=== PATIENT | male | born 1955 | race Caucasian/White ===

== ENCOUNTER 2020-03-10 03:51 | Emergency (ER) | payer BC ==
[~2020-03-10] VITALS: Ht 182.9 cm; Wt 75.0 kg
[2020-03-10 03:55] VITALS: BP 134/89
[2020-03-10] MEDS ORDERED: TETanus/Pertussis (Acell)/Diphther VAC/PF (Tdap-Adult) 0.5ml syringe IMVAC ONE (04:05)
--- NOTE | 2020-03-10 05:42 | NUR ---
[facility] notified pt is ready to be discharged. [employer] contacted for transportation. [employer] unable to contact family for transportation payment. automobile rental clerk made attempt to contact family; no answer.
[2020-03-17] MEDS ORDERED: LURA60TA2 PO (15:26)
[2020-03-17] MEDS ORDERED: ATOR80TA PO (15:26)
[2020-03-17] MEDS ORDERED: ASPI-1265 PO (15:26)
[2020-03-17] MEDS ORDERED: THIA100T70 PO (15:26)
[2020-03-17] MEDS ORDERED: LORA-269 PO (15:26)
[2020-03-17] MEDS ORDERED: FOLI0.4T2 PO (15:26)
[2020-03-17] MEDS ORDERED: DIVA-74 PO (15:26)
[2020-03-17] MEDS ORDERED: METO-411 PO (15:26)
[2020-03-17] MEDS ORDERED: TRAM50TA2 PO (15:26)
[2020-03-17] MEDS ORDERED: BUDE10.2 INH (15:26)
[2020-03-17] MEDS ORDERED: ALPR-624 PO (15:26)
[2020-03-17] MEDS ORDERED: DESV50TA10 PO (15:26)
[2020-03-17] MEDS ORDERED: CLOP75TA35 PO (15:26)
[2020-03-17] MEDS ORDERED: QUET25TA PO (15:26)
[2020-03-17] MEDS ORDERED: LOSA25TA96 PO (15:26)
[2020-03-17] MEDS ORDERED: GABA600T13 PO (15:26)
[2020-03-17] MEDS ORDERED: QUET100T33 PO (15:26)
[2020-03-17] MEDS ORDERED: ACET-1008 PO (15:26)
[2020-03-17] MEDS ORDERED: HYDR12.55 PO (15:26)
== END 2020-03-10 06:22 | disposition home or self-care (01) ==
LOC: ER 03:52
DX: S09.90XA Unspecified injury of head, initial encounter (principal); S01.111A Laceration without foreign body of right eyelid and periocular area, initial encounter; Z88.5 Allergy status to narcotic agent; W22.8XXA Striking against or struck by other objects, initial encounter; Y93.89 Activity, other specified; Y92.89 Other specified places as the place of occurrence of the external cause; Y99.8 Other external cause status
CPT/HCPCS: 70450; 90471; 90715; 99284

== ENCOUNTER → 2020-03-17 | Emergency (ER) | payer BC ==
[~2020-03-17] VITALS: Ht 188 cm; Wt 77.0 kg
[~2020-03-17] MED LIST: ACET-1008 PO; ALPR-624 PO; ALPRAZolam 0.5mg tablet PO PRN; ASPI-1265 PO; ATOR80TA PO; BUDE10.2 INH; CLOP75TA35 PO; DESV50TA10 PO; DIVA-74 PO; FOLI0.4T2 PO; GABA600T13 PO; HYDR12.55 PO; HYDROchlorothiazide 12.5mg capsule PO SCH; LORA-269 PO; LORazepam 2 mg/ml vial IM ONE; LOSA25TA96 PO; LURA60TA2 PO; METO-411 PO; OLANZapine 5mg rapidly disint. tablet PO ONE; QUET100T33 PO; QUET25TA PO; TETanus/Pertussis (Acell)/Diphther VAC/PF (Tdap-Adult) 0.5ml syringe IMVAC ONE; THIA100T70 PO; TRAM50TA2 PO; diphenhydrAMINE 50 mg/ml inj IM ONE; losartan 25mg tablet PO SCH; traMADol 50MG tablet PO PRN
[2020-03-17 14:53] LABS: BASOPHILS # (AUTO) 0.1 X10'3 (0-0.2); BASOPHILS % (AUTO) 1.1 % (0-1); EOSINOPHILS # (AUTO) 0.4 X10'3 (0-0.9); EOSINOPHILS % (AUTO) 7.3 % (0-6); HEMATOCRIT 27.4 % (42.0-52.0); HEMOGLOBIN 9.1 g/dl (14.0-17.9); LYMPHOCYTES # (AUTO) 1.6 X10'3 (1.1-4.8); LYMPHOCYTES % (AUTO) 29.3 % (21-51); MEAN CORPUSCULAR HEMOGLOBIN 29.9 PG (27.0-31.0); MEAN CORPUSCULAR VOLUME 90.6 FL (78-98); MEAN PLATELET VOLUME 6.8 FL (7.4-10.4); MONOCYTES # (AUTO) 0.9 X10'3 (0-0.9); MONOCYTES % (AUTO) 16.7 % (2-12); NEUTROPHILS # (AUTO) 2.5 X10'3 (1.8-7.7); NEUTROPHILS % (AUTO) 45.6 % (42-75); PLATELET COUNT 225 X10'3 (140-440); RED BLOOD COUNT 3.03 X10'6 (4.70-6.10); WHITE BLOOD COUNT 5.5 X10'3 (4.5-11.0)
[2020-03-17 15:04] LABS: ALANINE AMINOTRANSFERASE 14 U/L (12-78); ALBUMIN 2.8 G/DL (3.4-5.0); ALBUMIN/GLOBULIN RATIO 0.8 (1.1-1.5); ALKALINE PHOSPHATASE 97 IU/L (46-116); ANION GAP 6 (8-16); ASPARTATE AMINO TRANSFERASE 17 U/L (10-37); BILIRUBIN,TOTAL 0.4 MG/DL (0.1-1.0); BLOOD UREA NITROGEN 11 MG/DL (7-18); BUN/CREATININE RATIO 10.8 (5.4-32.0); CALCIUM 8.4 MG/DL (8.5-10.1); CHLORIDE 106 MMOL/L (99-107); CREATININE 1.02 MG/DL (0.60-1.10); ETHANOL < 0.010 GM/DL (0.0-0.010); GLUCOSE 92 MG/DL (70-104); POTASSIUM 3.5 MMOL/L (3.5-5.1); SODIUM 142 MMOL/L (135-145); TOTAL CARBON DIOXIDE 29.9 MMOL/L (24-32); TOTAL PROTEIN 6.2 G/DL (6.4-8.2); eGFR 74 ML/MIN
[2020-03-17 16:44] LABS: URINE AMPHETAMINE SCREEN NEGATIVE (Neg); URINE BARBITUATE SCREEN NEGATIVE (Neg); URINE BENZODIAZEPINES SCREEN NEGATIVE (Neg); URINE CANNABINOID SCREEN NEGATIVE (Neg); URINE COCAINE SCREEN NEGATIVE (Neg); URINE METHADONE SCREEN NEGATIVE (Neg); URINE OPIATE SCREEN NEGATIVE (Neg); URINE PHENCYCLIDINE SCREEN NEGATIVE (Neg)
--- NOTE | 2020-03-17 17:00 | NUR ---
pt outside of his room swearing at the staff, provider ordered meds to be given.
[2020-03-17 19:11] LABS: CLARITY,URINE CLEAR (Clear); COLOR,URINE YELLOW (Yellow); GLUCOSE, URINE NEGATIVE (Neg); KETONES,URINE NEGATIVE (Neg); LEUKOCYTE ESTERASE ,URINE NEGATIVE (Neg); NITRITES, URINE NEGATIVE (Neg); OCCULT BLOOD,URINE NEGATIVE (Neg); PROTEIN,URINE NEGATIVE (Neg)
[2020-03-17 19:20] LABS: UA COLLECTION TYPE CLN CATCH MIDSTREAM
[2020-03-17] MEDS: QUEtiapine 25mg tablet PO SCH (20:00)
[2020-03-17] MEDS: LORazepam 1 MG tablet PO SCH (20:13)
[2020-03-17] MEDS: quetiapine 100mg tablet PO SCH (20:13)
[2020-03-17] MEDS: atorvastatin 20mg tablet PO SCH (20:13)
[2020-03-17] MEDS: divalproex sodium 250mg tablet PO SCH (20:13)
[2020-03-17] MEDS: lurasidone 60mg tablet PO SCH (20:13)
[2020-03-17] MEDS: venlafaxine 25mg tablet PO SCH (20:13)
[2020-03-17] MEDS: gabapentin 300mg capsule PO SCH (20:14)
[2020-03-17] MEDS: budesonide 0.5mg/2ml UD nebule IH SCH (20:49)
[2020-03-17] MEDS: albuterol 2.5 MG/3 ML nebule NEB SCH (20:49)
--- NOTE | 2020-03-17 21:50 | NUR ---
KAMLA JACINTO [facility] [phone]
--- NOTE | 2020-03-18 01:22 | NUR ---
PT WAS INCONTINENT OF STOOL IN HIS BED.PT WAS CLEANED UP AND BEDDING WAS CHANGED
[2020-03-18] MEDS: albuterol 2.5 MG/3 ML nebule NEB SCH ×4 (02:00→20:46)
[2020-03-18] MEDS: budesonide 0.5mg/2ml UD nebule IH SCH ×2 (08:00→20:46)
--- NOTE | 2020-03-18 11:50 | NUR ---
INCONTINENT OF LARGE AMOUNTS OF URINE IN DIAPER. COOPERATIVE AT PRESENT. CLEAN DIAPER, SCRUB PANTS, AND BED PAD APPLIED. REFUSES BREAKFAST TRAY AND STATES HE IS NOT HUNGRY AT THIS TIME. RESTING CALMLY IN BED.
[2020-03-18] MEDS: thiamine 100mg tablet PO SCH (12:06)
[2020-03-18] MEDS: metoprolol succinate 25mg (24-HOUR) SR. Tablet PO SCH (12:07)
[2020-03-18] MEDS: divalproex sodium 250mg tablet PO SCH ×3 (12:07→21:07)
[2020-03-18] MEDS: gabapentin 300mg capsule PO SCH ×2 (12:07→21:07)
[2020-03-18] MEDS: QUEtiapine 25mg tablet PO SCH ×2 (12:08→20:00)
[2020-03-18] MEDS: aspirin 81mg tab.chew PO SCH (12:08)
[2020-03-18] MEDS: venlafaxine 25mg tablet PO SCH ×3 (12:08→21:07)
[2020-03-18] MEDS: LORazepam 1 MG tablet PO SCH ×3 (12:08→21:00)
[2020-03-18] MEDS: clopidogrel 75mg tablet PO SCH (12:08)
[2020-03-18] MEDS: folic acid 0.4mg tablet PO SCH (12:09)
--- NOTE | 2020-03-18 14:40 | NUR ---
PATIENT IS LETHARGIC AND DIZZY WHEN UP TO BATHROOM. DR. GONZALEZ NOTIFIED THAT AFTERNOON MEDS HAD BEEN HELD SINCE PATIENT WAS VERY SLEEPY TODAY.
--- NOTE | 2020-03-18 17:40 | NUR ---
PATIENT HAS BP OF 84/62. TC TO PHARMACIST, CAITLIN, TO DISCUSS MEDICATION LIST. PHARMACIST SUGGESTS DECREASING DOSE OF [place], DC HYDROCHLOROTHIAZIDE, AND POSSIBLY GIVING FLUIDS FOR HYDRATION. MESSAGE TO DR. GONZALEZ FOR FURTHER ORDERS.
[2020-03-18] MEDS: lurasidone 60mg tablet PO SCH (18:00)
--- NOTE | 2020-03-18 18:43 | NUR ---
Dr. Kuhn updated on pt's current VS. No new orders at this time. Pt. to be encouraged to drink more fluids.
--- NOTE | 2020-03-18 20:45 | NUR ---
Pt. sitting in bed, receiving breathing tx. from resp therapist.
[2020-03-18] MEDS: quetiapine 100mg tablet PO SCH (21:00)
[2020-03-18] MEDS: atorvastatin 20mg tablet PO SCH (21:07)
--- NOTE | 2020-03-18 21:16 | NUR ---
Pt's BP 91/63. aware. Held ativan and seroquel. All other HS meds given.
--- NOTE | 2020-03-18 22:30 | NUR ---
Pt. in bed, sleeping/resting quietly. VS monitoring continues.
--- NOTE | 2020-03-18 23:30 | NUR ---
Pt. continues to sleep/rest. He is able to repos self in bed.
--- NOTE | 2020-03-19 00:30 | NUR ---
Pt. continues to sleep in bed.
--- NOTE | 2020-03-19 01:30 | NUR ---
Pt. in bed, sleeping comfortably. Pt. repositions self in bed.
[2020-03-19] MEDS: albuterol 2.5 MG/3 ML nebule NEB SCH ×4 (02:00→20:09)
--- NOTE | 2020-03-19 02:06 | NUR ---
F/U VS taken at this time while pt. is briefly awake. BP WNL. Pt. denies discomfort.
--- NOTE | 2020-03-19 02:30 | NUR ---
Pt. continues to sleep in bed. No s/s of discomfort.
--- NOTE | 2020-03-19 03:30 | NUR ---
Pt. in bed, asleep. No s/s of discomfort.
--- NOTE | 2020-03-19 04:30 | NUR ---
Pt. continues to sleep in bed. No s/s of discomfort.
--- NOTE | 2020-03-19 05:29 | NUR ---
VS taken and WNL at this time. Pt. assisted to the bathroom to void. Pt. also provided with fluids at this time.
--- NOTE | 2020-03-19 06:37 | NUR ---
Received apteinty in bed in the semi-watson's position, audibly snoring at times. No distress observed. Addendum: 03/19/20 at 0749 by LEANDER Received patient*
[2020-03-19] MEDS: budesonide 0.5mg/2ml UD nebule IH SCH ×2 (08:00→20:08)
[2020-03-19] MEDS: QUEtiapine 25mg tablet PO SCH ×2 (08:07→22:04)
[2020-03-19] MEDS: gabapentin 300mg capsule PO SCH ×2 (08:07→21:55)
[2020-03-19] MEDS: LORazepam 1 MG tablet PO SCH ×3 (08:07→21:43)
[2020-03-19] MEDS: divalproex sodium 250mg tablet PO SCH ×3 (08:07→21:42)
[2020-03-19] MEDS: venlafaxine 25mg tablet PO SCH ×3 (08:07→21:42)
[2020-03-19] MEDS: thiamine 100mg tablet PO SCH (08:07)
[2020-03-19] MEDS: aspirin 81mg tab.chew PO SCH (08:07)
[2020-03-19] MEDS: metoprolol succinate 25mg (24-HOUR) SR. Tablet PO SCH (08:07)
[2020-03-19] MEDS: folic acid 0.4mg tablet PO SCH (08:08)
[2020-03-19] MEDS: clopidogrel 75mg tablet PO SCH (08:08)
--- NOTE | 2020-03-19 08:38 | NUR ---
Patient took all of his morning medications whole in applesauce. He was slighlty confused and attempted to chew his medications but was redirectable with prompting. His Diet was changed to Regular chopped as he has difficulty cutting his food. He is now resting in bed in the semi-watson's position. No distress observed. Will continue to monitor.
--- NOTE | 2020-03-19 09:40 | NUR ---
Patient is seen getting up from his bed and ambulating to the nurse's station. He is somewhat unsteady and was 2 person assisted back to bed. He is confusded but pleasant and redirectable. He is now sitting on the edge of his bed with a warm blanket around his shoulders. Coffee is offered to patient. No distress observed.
--- NOTE | 2020-03-19 10:10 | NUR ---
Spoke to ESTRELLA Ohara for [facility] case management. She states that she will reach out to [facility] to determine if they will take the patient back. She reports that she spoke to Yolette at [facility]. She informed Yolette that the patient is not a behavioral health candidate. Mayda asked if patient had been referred by [facility] to a facility in [place] and they states they have not. Mayda asked if patient may return to [facility] if his behaviors improve and they state they will not accept him back due to the fact that he has been "violent towards patients and staff". Mayda states she will reach out to patient's son.
--- NOTE | 2020-03-19 11:06 | NUR ---
Patient got up from his bed and walked to the nurses desk. He was met by [employer] and the patient became unsteady. She attempted to keep him upright and I came around to assist. The patient was too heavy to safely keep upright and he was eased gently to his buttock on the floor with no injuries. Patient was assisted up from a sitting position on the floor to a wheelchair and returned safely to bed.
--- NOTE | 2020-03-19 11:19 | NUR ---
Patient attempted to get up from the side of his bed. He was unsteady and was redirected with 2 person assist in to bed, Warm blanket was provided. No distress observed.
--- NOTE | 2020-03-19 12:38 | NUR ---
Patient is currently resting in bed peacefully. No distress observed.
--- NOTE | 2020-03-19 12:59 | NUR ---
Patient is sitting up in bed eating lunch. No distress observed. Patient receives some assistance from [employer] opening packaging.
--- NOTE | 2020-03-19 13:20 | NUR ---
Patient took his afternoon medications without incident.
--- NOTE | 2020-03-19 14:18 | NUR ---
Patient is resting in bed with eyes open. No distress observed.
--- NOTE | 2020-03-19 16:15 | NUR ---
Patient attempted to get out of bed and transferred self. Patient was redirectable and sat back on the bed with prompting, helped position patient and attempted reorientation for safety, however, patient dfoes not seem to have appropriate safety awareness. He is resting in bed in the semi-watson's position. No distress observed.
--- NOTE | 2020-03-19 17:04 | NUR ---
Patient is sitting at side of bed. He is restless, but redirectable at this time. He has to be continuously reoriented for safety. He attempts to stand and is redirected to sit frequently.
--- NOTE | 2020-03-19 17:48 | NUR ---
Patient attempts to get out of bed. He is redirected but appears confused and aphasic. Patient is now sitting at edge of bed.
[2020-03-19 17:49] VITALS: BP 97/65
[2020-03-19] MEDS: lurasidone 60mg tablet PO SCH (18:03)
--- NOTE | 2020-03-19 18:42 | NUR ---
PT RESTING PEACFULLY IN BED . HOB ELEVATED 30 DEGREES. PT RESP EVEN UNLABORED WILL CONTINUE TO MONITOR AND REASSESS NEEDED
--- NOTE | 2020-03-19 19:40 | NUR ---
PT UP OUT OF BED , VERY UNSTEADY ON HIS FEET [employer] NEEDS TO ASSIST AT ALL TIMES WELL MYSELF WITH ANY AMBULATING NEEDS
--- NOTE | 2020-03-19 20:10 | NUR ---
RESPIRATORY HERE TO GIVE PATIENT BREATHING TREATMENT ORDERED
--- NOTE | 2020-03-19 20:45 | NUR ---
PT ASKED FOR URINAL TO VOID . PT ACCIDENTLY SOILED HIS LINEN AND SCRUBS POST VOID . PT NEEDED ASSISTANCE ON CLEANING HIMSELF UP AND CHANGING HIS PANTS . PT JUST STAIRED AT HIS PANTS , ASKED " WHT DO I DO WHAT ARE THESE? " VERBALIZED TO PATIENT THAT THEY WERE PANTS AND THAT HE NEEDED TO PUT THEM ON . PT WAS UNABLE TO UNDERSTAND THAT HE NEEDED TO PUT HIS PANYS ON , LOOKED CONFUSED . PT WAS UNABLE TO FIGURE OUT HOW TO PUT HIS LEGS IN HIS PANTS , WITH ASSISTANCE HE HAD SUCCESS
--- NOTE | 2020-03-19 21:10 | NUR ---
PT BACK UP OUT OF BED STANDING AT BEDSIDE . REDIRECTED PATIENT TO REMAIN CLOSE TO BED UNLESS HE IS ASSITED WITH AMBULATION . PT DISPLAYING BODY LANGUAGE THAT MIMICS HIM NOT WANTING ASSISTANCE WHEN AMBULATING . ASKED PATIENT IF HE USES A WALKER OR CANE AT HOME T KEEP HIS BALANCE AND GAIT IN PLACE . PATIENT ANSWERED THE QUEASTIONS WITH DUALOGUE THAT DID NOT COINSIDE WITH ORGINAL CONVERSATION . PT WAS ABLE TO BE REDIREDTED HOWEVER, BACK TO BEDSIDE WHERE HE SAT DOWN .
--- NOTE | 2020-03-19 21:28 | NUR ---
Mikie alanis in ED - 03/20/20 at 0142 by ALMITA PT CURRENTLY RESTING PRONE IN BED IN THE DIRECT LINE OF SIGHT OF NURSING STAFF . PT HAS BEEN ACCEPTED TO BEHAVIOR HEALTH AND REPORT HAS BEEN GIVEN TO DARIEL HODGSON MD IS DR MORIN
[2020-03-19] MEDS: atorvastatin 20mg tablet PO SCH (21:42)
[2020-03-19] MEDS: quetiapine 100mg tablet PO SCH (21:42)
--- NOTE | 2020-03-19 23:40 | NUR ---
PRIMARY RN ON BREAK. PT ASSISTED BY RN AND TECH TO AMBULATE. PT HAS UNSTEADY GAIT.
--- NOTE | 2020-03-19 23:46 | NUR ---
PT REPEATEDLY ATTEMPTS TO GET UP AND WALK AROUND. UNSTEADY GAIT. PT IS A FALL RISK. TECH TO BEDSIDE TO ASSIST PATIENT WITH AMBULATION.
== END ==
LOC: ER 14:17
DX: S90.811A Abrasion, right foot, initial encounter (principal); F99 Mental disorder, not otherwise specified; F91.9 Conduct disorder, unspecified; F03.90 Unspecified dementia, unspecified severity, without behavioral disturbance, psychotic disturbance, mood disturbance, and anxiety; I25.10 Atherosclerotic heart disease of native coronary artery without angina pectoris; Z88.5 Allergy status to narcotic agent; Z79.82 Long term (current) use of aspirin; Z79.899 Other long term (current) drug therapy; X78.0XXA Intentional self-harm by sharp glass, initial encounter; Y93.89 Activity, other specified; Y92.89 Other specified places as the place of occurrence of the external cause; Y99.8 Other external cause status
CPT/HCPCS: 80053; 80305; 80320; 81003; 85025; 90471; 90715; 94640; 96372; 99285; J1200; J2060; 94760; J7626